=== PATIENT | male | born 1990 ===

== ENCOUNTER 2023-07-30 06:00 | Emergency (ER) | payer OTHER, MEDICAID ==
[2023-07-30] MEDS ORDERED: Ondansetron 4 MG Tab.DIS ONE (07:30)
[2023-07-30] MEDS ORDERED: Acetaminophen/HYDROcodone 325-5 MG Tab ONE (07:30)
== END 2023-07-30 07:31 | disposition home or self-care (01) ==
LOC: LB.ED 06:00
DX: K64.4 Residual hemorrhoidal skin tags (principal); Z79.899 Other long term (current) drug therapy
CPT/HCPCS: 99282; A9270; Q0162; 99283

== ENCOUNTER 2023-08-01 15:26 | Emergency (ER) | payer OTHER, MEDICAID ==
[2023-08-01 15:44] VITALS: BP 120/84; PULSE 82
== END 2023-08-01 16:23 | disposition home or self-care (01) ==
LOC: LB.ED 15:26
DX: K64.9 Unspecified hemorrhoids (principal); Z79.899 Other long term (current) drug therapy
CPT/HCPCS: 99282